=== PATIENT | female | born 1970 | race Caucasian/White ===

== ENCOUNTER 2017-07-25 08:41 | Outpatient (CLI) | payer OTHER | END 2017-07-25 08:42 | disposition home or self-care (01) | LOC: MRI 08:41 | PROVIDERS: ATTEND Family Medicine | DX: S83.512A Sprain of anterior cruciate ligament of left knee, initial encounter (principal); Z53.8 Procedure and treatment not carried out for other reasons ==

== ENCOUNTER 2017-09-18 12:37 | Outpatient (CLI) | payer OTHER ==
[2017-09-18] MEDS ORDERED: Gadobenate Dimeglumine 529 MG/1 ML (20ML VIAL) ONE (14:08)
--- NOTE | 2017-09-18 16:11 | RAD ---
PROCEDURE: LEFT KNEE ARTHROGRAM 09/18/17 INDICATION: Left knee injury, post MRI gadolinium arthrogram of left knee was requested. This procedure is done p rior to MRI with injection of contrast medium containing iodinated contrast and gadolinium. FINDINGS: Approximately 10 mL of the contrast solution premixed according to protocol by the pharmacy containin g gadolinium and iodinated contrast was injected into the left knee joint under fluoroscopic observat ion. Patient was sent to MRI following procedure for post gadolinium arthrogram MRI exam of left knee. PROCEDURE NOTE: Anterior left knee was prepped and draped in a sterile manner. Local anesthesia was administered at t he skin with lidocaine. A 20 gauge needle was then introduced into the knee joint in a subpatellar lo cation from a medial approach. Contrast then injected under fluoroscopic observation. The patient john erated the procedure well and there were no problems or complications. POS: TRI
--- NOTE | 2017-09-18 18:18 | MRI ---
MR ARTHROGRAM WITH INTRA-ARTICULAR CONTRAST LEFT KNEE 09/18/17 PROVIDED CLINICAL HISTORY: Left knee pain. FINDINGS: Comparison is made with the study dated 01/30/16. Interval postoperative changes of ACL reconstruction, with an intact appearance to the ACL graft. The medial and lateral menisci demonstrate no evidence for tear. No focal articular cartilage defect is apparent. There is a small fissure involving the medial patellar facet cartilage. Heterogeneous appearance to the prefemoral fat is likely on an iatrogenic basis. No focal concerning regional marrow or muscular signal abnormality is apparent. The posterior cruciat e ligament, medial collateral ligament, lateral collateral ligamentous complex and extensor mechanism appear intact. IMPRESSION: 1. Interval postoperative changes of ACL reconstruction with an intact appearance to the ACL gra ft. 2. Mild patellar chondrosis. POS: C
== END 2017-09-18 12:38 | disposition home or self-care (01) ==
LOC: RAD 12:37
PROVIDERS: ATTEND Family Medicine
DX: S83.512A Sprain of anterior cruciate ligament of left knee, initial encounter (principal); Z98.890 Other specified postprocedural states
CPT/HCPCS: 27370; A9579